=== PATIENT | female | born 1975 | race Caucasian/White ===

== ENCOUNTER → 2016-11-24 | Outpatient (CLI) | payer BC ==
[2016-11-24 11:40] LABS: RDW COEFFICIENT OF VARIATION 14.5 % (11.5-14.5)
[2016-11-24 11:54] LABS: HEMATOCRIT 43.2 % (37.0-47.0); HEMOGLOBIN 14.5 g/dL (12.0-16.0); MEAN CORPUSCULAR HEMOGLOBIN 30.5 PG (27-31); MEAN CORPUSCULAR HGB CONC 33.6 g/dL (33-37); RED BLOOD COUNT 4.75 10^6/uL (4.20-5.40); WHITE BLOOD COUNT 14.92 10^3/uL (4.8-10.8)
== END ==
LOC: MOB LAB 09:51
PROVIDERS: ATTEND Nurse Practitioner Family
DX: R53.83 Other fatigue (principal); R63.5 Abnormal weight gain
CPT/HCPCS: 36415; 82306; 82728; 84443; 85027

== ENCOUNTER → 2017-03-10 | Outpatient (CLI) | payer BC | LOC: LAB 18:59 | PROVIDERS: ATTEND Nurse Practitioner Family | DX: R79.0 Abnormal level of blood mineral (principal); E55.9 Vitamin D deficiency, unspecified; R53.83 Other fatigue | CPT/HCPCS: 36415; 82306; 82728 ==